=== PATIENT | female | born 1990 | race Caucasian/White ===

== ENCOUNTER 2019-05-06 20:55 | Emergency (ER) | payer OTHER ==
--- NOTE | 2019-05-06 22:07 | UC ---
Abdominal Pain Female HPI - HPI Summary HPI Summary: Pt with several hours of dysuria, urgency. Pt with h/o recurrent UTI (5-6/year) states last > 2 month ago Not n vaginal discharge, itching, odor lesion. no back pain. no n/v Pt took cipro x 1 tab a OTC AZO 2 hours ago without improvement. no fevers meds reviewed - History of Current Complaint Chief Complaint: UCGU Stated Complaint: UTI Time Seen by Provider: 05/06/19 21:58 Hx Obtained From: Patient Hx Last Menstrual Period: iud ?: No Onset/Duration: Gradual Onset, Lasting Hours Severity Initially: Moderate Severity Currently: Moderate Pain Intensity: 8 Allergies/Adverse Reactions: Allergies Allergy/AdvReac Type Severity Reaction Status Date / Time No Known Allergies Allergy Verified 05/06/19 21:31 Home Medications: Home Medications Amphetamine/Dextroamph ER(NF) [Adderal XR (NF)] 25 mg PO DAILY 05/06/19 [ History Confirmed 05/06/19] Ciprofloxacin TAB* [Cipro 500 MG TAB*] 500 mg PO ONCE 05/06/19 [History Confirmed 05/06/19] PMH/Surg Hx/FS Hx/Imm Hx Previously Healthy: Yes - Surgical History Surgical History: None - Family History Known Family History: Positive: Non-Contributory - Social History Occupation: Student Lives: With Family Alcohol Use: Daily Alcohol Amount: 3-4 daily Substance Use Type: None Smoking Status (MU): Never Smoked Tobacco Review of Systems All Other Systems Reviewed And Are Negative: Yes Constitutional: Positive: Negative Skin: Positive: Negative Eyes: Positive: Negative ENT: Positive: Negative Gastrointestinal: Negative: Nausea Genitourinary: Positive: Dysuria, Frequency, Urgency. Negative: Vaginal/Penile Burning, Vaginal/Penile Itching, Vaginal/Penile Discharge Motor: Positive: Negative Neurovascular: Positive: Negative Physical Exam - Summary Physical Exam Summary: Vital Signs Reviewed: Yes A+Ox3, no distress Eyes: Conjunctiva Clear ENT: Hearing grossly normal neck: supple Respiratory: Positive: No respiratory distress, No accessory muscle use Cardiovascular: skin color reflect adequate perfusion Musculoskeletal Exam: QUIJANO x 4 without difficulty Neurological: Positive: Alert, ambulatory without difficulty Psychological: Positive: Normal Response To Family Skin: Positive: no rash, no ecchymosis Vital Signs: Initial Vital Signs Temp 98.3 F 05/06/19 21:27 Pulse 55 05/06/19 21:27 Resp 16 05/06/19 21:27 BP 110/73 05/06/19 21:27 Pulse Ox 100 05/06/19 21:27 Abd Pain Female Course/Dx - Course Course Of Treatment: Pt presents with progressive discomfort, burning and frequency with urination. Pt states started through the day today - took cipro and azo without improvement Pt with h/o recurrent UTI No other sx, no vaginal sx not pregnat urine with leukocyte, nitrate will culture start macrobid azo recommend fu with pcp and/or urologist given recurrent frequency of sx - Differential Dx/Diagnosis Provider Diagnosis: Dysuria Discharge - Sign-Out/Discharge Documenting (check all that apply): Patient Departure All imaging exams completed and their final reports reviewed: No Studies - Discharge Plan Condition: Stable Disposition: HOME Prescriptions: Nitrofurantoin Monohyd/M-Cryst [Macrobid 100 mg Capsule] 100 mg PO BID #14 cap Phenazopyridine TAB* [Pyridium 100 mg TAB*] 100 mg PO TID PRN #15 tab PRN Reason: burning with urination Patient Education Materials: Urinary Tract Infection in Women (ED) Referrals: No Primary Care Phys,NOPCP [Primary Care Provider] - Additional Instructions: - stay well hydrated - drink plenty of non-alcoholic, non caffinated beverages - your urine will be further tested - if you require any changes to your treatment, we will contact you - this usually take 2 days -Contact your doctor or return with questions or concerns - Take your antibiotics exactly as prescribed until gone - Take pyridium as prescribed for discomfort. This will make your urine blaze orange - this is normal - Okay to alternate ibuprofen (Advil, Motrin) and Tylenol every 3 hours for pain. Take with food - Call your doctor or return with questions or concerns - Billing Disposition and Condition Condition: STABLE Disposition: Home
[2019-05-06 22:12] VITALS: BP 110/73
[2019-05-06] MEDS ORDERED: Phenazopyridine TAB* 100 MG PO ONE (22:52)
[2019-05-06] MEDS ORDERED: Nitrofurantoin Macrocrystals* 50 MG CAP PO ONE (22:52)
--- NOTE | 2019-05-08 14:59 | UC ---
- Progress Note Progress Note: please notify pt no UTI stop antibiotic recheck if still symptomatic Course/Dx - Diagnoses Provider Diagnoses: Dysuria Discharge - Sign-Out/Discharge Documenting (check all that apply): Post-Discharge Follow Up All imaging exams completed and their final reports reviewed: No Studies - Discharge Plan Condition: Stable Disposition: HOME Prescriptions: Nitrofurantoin Monohyd/M-Cryst [Macrobid 100 mg Capsule] 100 mg PO BID #14 cap Phenazopyridine TAB* [Pyridium 100 mg TAB*] 100 mg PO TID PRN #15 tab PRN Reason: burning with urination Patient Education Materials: Urinary Tract Infection in Women (ED) Referrals: No Primary Care Phys,NOPCP [Primary Care Provider] - Additional Instructions: - stay well hydrated - drink plenty of non-alcoholic, non caffinated beverages - your urine will be further tested - if you require any changes to your treatment, we will contact you - this usually take 2 days -Contact your doctor or return with questions or concerns - Take your antibiotics exactly as prescribed until gone - Take pyridium as prescribed for discomfort. This will make your urine blaze orange - this is normal - Okay to alternate ibuprofen (Advil, Motrin) and Tylenol every 3 hours for pain. Take with food - Call your doctor or return with questions or concerns - Billing Disposition and Condition Condition: STABLE Disposition: Home
== END 2019-05-06 23:04 | disposition home or self-care (01) ==
LOC: UCEAST 20:55
DX: R30.0 Dysuria (principal); Z87.440 Personal history of urinary (tract) infections
CPT/HCPCS: 81003; 87086; 99212; A9270-GY; G0463